=== PATIENT | female | born 1980 | race Caucasian/White ===

== ENCOUNTER → 2018-01-26 11:58 | Outpatient (CLI) | payer OTHER, SELFPAY ==
[2018-02-01 15:21] LABS: HPV Reflexed? NOT INDICATED
== END ==
PROVIDERS: Visit Provider Obstetrics & Gynecology
DX: Z12.4 Encounter for screening for malignant neoplasm of cervix (principal)
CPT/HCPCS: 88175; G0145

== ENCOUNTER → 2020-04-24 | Outpatient (CLI) | payer OTHER, SELFPAY ==
[2020-04-29 14:23] LABS: HPV Reflexed? NOT INDICATED
== END | disposition home or self-care (01) ==
PROVIDERS: Obstetrics & Gynecology
DX: Z12.4 Encounter for screening for malignant neoplasm of cervix (principal)
CPT/HCPCS: 88175; G0145

== ENCOUNTER → 2020-06-19 13:14 | Outpatient (CLI) | payer OTHER, SELFPAY ==
--- NOTE | 2020-06-19 13:17 | BI_ITS ---
MAMMOGRAPHY - BILATERAL SCREENING REASON FOR EXAM: Female, 40 years old. Routine annual screening examination. PERTINENT HISTORY: Grandmother with breast cancer. TECHNIQUE: Digital bilateral breast donald (3D mammographic acquisition) in the CC and MLO projections. 2-D mediolateral oblique (MLO) and craniocaudad (CC) views of both breasts were obtained. CAD: Full Field Digital Mammography with Computer Added Detection was performed. COMPARISON: None. Baseline examination. FINDINGS: Breast Composition: The breasts are extremely dense, which lowers the sensitivity of mammography. There is a 2.2 cm x 2 cm nodular density in the upper lateral portion of the right breast. Correlation with ultrasound is recommended. Benign appearing bilateral axillary lymph nodes. No other significant abnormalities are identified. BI/SCREEN MAMM (CAD) W/DONALD BILAT IMPRESSION: 2.2 cm x 2 cm nodular density in the upper lateral aspect of the right breast. Correlation with ultrasound is recommended. ASSESSMENT CATEGORY: BIRADS Category 0: Incomplete. Need additional imaging evaluation. A letter regarding these results will be sent to the patient by the facility within 30 days. Approximately 10% of breast cancers are not detected by mammography. A normal mammogram should not delay biopsy of a clinically suspicious abnormality. [id number] Electronically Signed: Ralph Kirby, at 14:40 EST , Service support ,
== END ==
PROVIDERS: PCP Family Medicine; Referring Provider Obstetrics & Gynecology; Visit Provider Obstetrics & Gynecology
DX: Z12.31 Encounter for screening mammogram for malignant neoplasm of breast (principal)
CPT/HCPCS: 77063; 77067

== ENCOUNTER → 2020-06-24 11:00 | Outpatient (CLI) | payer OTHER, SELFPAY ==
--- NOTE | 2020-06-24 11:05 | US_ITS ---
STUDY: ULTRASOUND BREAST - RIGHT REASON FOR EXAM: Female, 40 years old. A normal screening mammogram. TECHNIQUE: Axial and longitudinal images of the RIGHT breast were performed with a high resolution ultrasound transducer. # OF IMAGES: 70 COMPARISON: Comparison is made with prior mammogram dated 06/19/2020. FINDINGS: RIGHT Breast: Dense fibroglandular tissue is seen in the upper outer quadrant of the right breast. No solid or cystic mass lesion is seen. US/Breast Limited Unilateral IMPRESSION: Dense fibroglandular tissue is seen in the upper outer quadrant of the right breast. No sonographic abnormality is seen. ASSESSMENT CATEGORY: BIRADS Category 2: Benign. A letter regarding these results will be sent to the patient by the facility within 30 days. Electronically Signed: Ralph Kirby, at 15:45 EST , Service support ,
== END ==
PROVIDERS: PCP Family Medicine; Referring Provider Obstetrics & Gynecology; Visit Provider Obstetrics & Gynecology
DX: R92.2 Inconclusive mammogram (principal)
CPT/HCPCS: 76642

== ENCOUNTER → 2021-07-07 10:12 | Outpatient (CLI) | payer OTHER, SELFPAY ==
--- NOTE | 2021-07-07 10:16 | BI_ITS ---
MAMMOGRAPHY - BILATERAL SCREENING 3-D TOMOSYNTHESIS REASON FOR EXAM: Female, 41 years old. SCREENING PERTINENT HISTORY: No significant family history. TECHNIQUE: 2-D mammograms and 3-D Tomosynthesis of the breast (s) were performed. CAD was performed. COMPARISON: None. FINDINGS: The breast composition is heterogeneously dense that can obscure small breast masses. Scattered benign calcifications are seen. No dense spiculated masses or suspicious microcalcifications are identified. No architectural distortion is identified. There is no skin thickening or retraction. There has been no significant change since the prior study. BI/SCRN MAMM (CAD)W/DONALD BILAT IMPRESSION: No mammographic signs of malignancy. Routine yearly mammograms recommended. ASSESSMENT CATEGORY: BIRADS Category 1: Negative. A letter regarding these results will be sent to the patient by the facility within 30 days. FOLLOW UP RECOMMENDATION: Yearly follow up mammogram recommended. (A) Approximately 10% of breast cancers are not detected by mammography. A normal mammogram should not delay biopsy of a clinically suspicious abnormality. Electronically Signed: Bunny Lechuga MD at 11:44 EST Tel , Service support ,
== END ==
PROVIDERS: PCP Family Medicine; Referring Provider Obstetrics & Gynecology; Visit Provider Obstetrics & Gynecology
DX: Z12.31 Encounter for screening mammogram for malignant neoplasm of breast (principal)
CPT/HCPCS: 77063; 77067

== ENCOUNTER → 2022-09-01 | Outpatient (CLI) | payer OTHER, SELFPAY ==
[2022-09-09 18:48] LABS: HPV APTIMA, High Risk Negative (Negative)
== END | disposition home or self-care (01) ==
PROVIDERS: PCP Family Medicine; Visit Provider Obstetrics & Gynecology
DX: Z12.4 Encounter for screening for malignant neoplasm of cervix (principal)
CPT/HCPCS: 87624; 88175; G0145

== ENCOUNTER → 2022-09-11 | Outpatient (CLI) | payer OTHER, SELFPAY ==
--- NOTE | 2022-09-11 08:41 | BI_ITS ---
MAMMOGRAPHY - BILATERAL SCREENING REASON FOR EXAM: Female, 42 years old. Routine annual screening examination. PERTINENT HISTORY: Grandmother with breast cancer. Prior right ultrasound-guided breast biopsy. TECHNIQUE: Digital bilateral breast donald (3D mammographic acquisition) in the CC and MLO projections. 2-D mediolateral oblique (MLO) and craniocaudad (CC) views of both breasts were obtained. CAD: Full Field Digital Mammography with Computer Added Detection was performed. COMPARISON: Comparison is made with prior study dated April 07, 2021 and June 19, 2020. FINDINGS: Breast Composition: The breasts are heterogeneously dense, which may obscure small masses. There are no dominant masses or suspicious calcifications. Stable small benign-appearing bilateral axillary lymph nodes. No other significant abnormalities are identified. There has been no significant change since the prior study. BI/SCRN MAMM (CAD)W/DONALD BILAT IMPRESSION: Stable bilateral screening mammogram. Yearly follow-up mammogram recommended. (A) ASSESSMENT CATEGORY: BIRADS Category 2: Benign. A letter regarding these results will be sent to the patient by the facility within 30 days. Approximately 10% of breast cancers are not detected by mammography. A normal mammogram should not delay biopsy of a clinically suspicious abnormality. [id number] Electronically Signed: Ralph Kirby MD at 9:29 EST ,
== END | disposition home or self-care (01) ==
PROVIDERS: PCP Family Medicine; Referring Provider Obstetrics & Gynecology; Visit Provider Obstetrics & Gynecology
DX: Z12.31 Encounter for screening mammogram for malignant neoplasm of breast (principal)
CPT/HCPCS: 77063; 77067

== ENCOUNTER → 2023-09-14 | Outpatient (CLI) | payer OTHER, SELFPAY ==
--- NOTE | 2023-09-14 09:10 | BI_ITS ---
MAMMOGRAPHY - BILATERAL SCREENING 3-D TOMOSYNTHESIS REASON FOR EXAM: Female, 43 years old. Screening for breast cancer PERTINENT HISTORY: No significant family history. TECHNIQUE: 2-D mammograms and 3-D Tomosynthesis of the breast (s) were performed. CAD was performed. COMPARISON: 09/11/2022 FINDINGS: The breast composition is heterogeneously dense that can obscure small breast masses. Scattered benign calcifications are seen. No dense spiculated masses or suspicious microcalcifications are identified. No architectural distortion is identified. There is no skin thickening or retraction. There has been no significant change since the prior study. BI/SCRN MAMM (CAD)W/DONALD BILAT IMPRESSION: No mammographic signs of malignancy. Routine yearly mammograms recommended. ASSESSMENT CATEGORY: BIRADS Category 1: Negative. A letter regarding these results will be sent to the patient by the facility within 30 days. FOLLOW UP RECOMMENDATION: Yearly follow up mammogram recommended. (A) Approximately 10% of breast cancers are not detected by mammography. A normal mammogram should not delay biopsy of a clinically suspicious abnormality. Electronically Signed: Bunny Lechuga MD at 17:40 EST ,
--- OUTSIDE RECORDS SUMMARY | 2023-09-14 09:55 | XMS RPT_ITS | CCD ---
Author Name Unknown Address [id number] [place] [address] Organization [facility] Care Team Providers Care Sales Agent Pest Control Service Name Role Phone Pastor Sahni MD Primary Care Provider Unavailable Primary Care Provider PASTOR Patel Primary Care Unavailable PASTOR SAHNI Primary Care Unavailable PASTOR SAHNI Primary Care Unavailable PASTOR SAHNI Primary Care Unavailable Medications Current Medications Medication Drug Class(es) Dates Sig (Normalized) Sig (Original) benzonatate 100 mg oral capsule (3 sources) Non-narcotic Antitussive Start: 05-09-2017 End: 07-04-2022 take 2 capsules by mouth three times daily as needed benzonatate (TESSALON PERLE) 100 mg capsule Indications: Viral URI with cough Take 2 capsules by mouth three times daily as needed for up to 10 days. 60 capsule 0 06/24/2022 07/04/2022 Active Completed/Discontinued Medications Medication Drug Class(es) Dates Sig (Normalized) Sig (Original) 12 hr buPROPion hydrochloride 100 mg extended release oral tablet (4 sources) Aminoketone Start: 05-17-2020 take 1 tablet by mouth once daily buPROPion SR (WELLBUTRIN SR) 100 mg 12 hr tablet Take 100 mg by mouth once daily. 0 05/17/2020 Active Problems Active Problems Problem Classification Problem Date Documented Da te Episodic/Chronic Other circulatory disease (1 source) Facial sinus finding; Translations: [Other specified symptoms and signs involving the circulatory and respiratory systems] 02-09-2023 Episodic Other gastrointestinal disorders (4 sources) Irritable bowel syndrome; Translations: [Irritable bowel syndrome without diarrhea] 07-20-2005 Chronic Other gastrointestinal disorders (4 sources) Constipation; Translations: [Constipation, unspecified] 07-20-2005 Episodic Other upper respiratory disease (1 source) Chronic rhinitis; Translations: [Unspecified sinusitis (chronic)] Chronic Other upper respiratory infections (2 sources) Viral upper respiratory tract infection; Translations: [Acute upper respiratory infection, unspecified] Episodic Viral infection (1 source) Viral disease; Translations: [Viral infection, unspecified] 02-16-2023 Episodic Past or Other Problems Problem Classification Problem Date Documented Date Episodic/Chronic Fetopelvic disproportion; obstruction (4 sources) Large fetus causing disproportion - delivered; Translations: [Maternal care for disproportion due to unusually large fetus, not applicable or unspecified] Onset: 06-30-2010 06-30-2010 Episodic Results Test Name Value Interpretation Reference Range Facil ity Vital Signs Date Time Vital Sign Value Performing Clinician Facility 02-16-2023 14:26-0400 Body temperature 100.29 [degF] Elly Wick BAKER SECOND.MILK DRYING MACHINE OPERATOR Work Phone: [facility] 02-16-2023 14:26-0400 Body weight 88.72 kg Elly Wick BAKER SECOND.MILK DRYING MACHINE OPERATOR Work Phone: [facility] 02-16-2023 14:26-0400 Diastolic blood pressure 82 mm[Hg] Elly Wick BAKER SECOND.MILK DRYING MACHINE OPERATOR Work Phone: [facility] 02-16-2023 14:26-0400 Heart rate 84 /min Elly Wick BAKER SECOND.MILK DRYING MACHINE OPERATOR Work Phone: [facility] 02-16-2023 14:26-0400 Respiratory rate 18 /min Elly Wick BAKER SECOND.MILK DRYING MACHINE OPERATOR Work Phone: [facility] 02-16-2023 14:26-0400 SaO2% (BldA) [Mass fraction] 96 % Elly Wick BAKER SECOND.MILK DRYING MACHINE OPERATOR Work Phone: [facility] 02-16-2023 14:26-0400 Systolic blood pressure 112 mm[Hg] Elly Wick BAKER SECOND.MILK DRYING MACHINE OPERATOR Work Phone: [facility] 02-09-2023 10:38-0400 Body temperature 97.11 [degF] Molly Sanders BAKER SECOND.MILK DRYING MACHINE OPERATOR Work Phone: [facility] 02-09-2023 10:38-0400 Body weight 87.36 kg Molly Sanders BAKER SECOND.MILK DRYING MACHINE OPERATOR Work Phone: [facility] 02-09-2023 10:38-0400 Diastolic blood pressure 68 mm[Hg] Molly Sanders BAKER SECOND.MILK DRYING MACHINE OPERATOR Work Phone: [facility] 02-09-2023 10:38-0400 Heart rate 61 /min Molly Sanders BAKER SECOND.MILK DRYING MACHINE OPERATOR Work Phone: [facility] 02-09-2023 10:38-0400 Respiratory rate 18 /min Molly Sanders BAKER SECOND.MILK DRYING MACHINE OPERATOR Work Phone: [facility] 02-09-2023 10:38-0400 SaO2% (BldA) [Mass fraction] 97 % Molly Sanders BAKER SECOND.MILK DRYING MACHINE OPERATOR Work Phone: [facility] 02-09-2023 10:38-0400 Systolic blood pressure 108 mm[Hg] Molly Sanders BAKER SECOND.MILK DRYING MACHINE OPERATOR Work Phone: [facility] 06-24-2022 18:31-0500 Body temperature 99.5 [degF] Jennifer Praisler-Wood BAKER SECOND.MILK DRYING MACHINE OPERATOR Work Phone: [facility] 06-24-2022 18:31-0500 Body weight 88.36 kg Jennifer Praisler-Wood BAKER SECOND.MILK DRYING MACHINE OPERATOR Work Phone: [facility] 06-24-2022 18:31-0500 Diastolic blood pressure 84 mm[Hg] Jennifer Praisler-Wood BAKER SECOND.MILK DRYING MACHINE OPERATOR Work Phone: [facility] 06-24-2022 18:31-0500 Heart rate 92 /min Jennifer Praisler-Wood BAKER SECOND.MILK DRYING MACHINE OPERATOR Work Phone: [facility] 06-24-2022 18:31-0500 Respiratory rate 20 /min Jennifer Praisler-Wood BAKER SECOND.MILK DRYING MACHINE OPERATOR Work Phone: [facility] 06-24-2022 18:31-0500 SaO2% (BldA) [Mass fraction] 98 % Jennifer Flynn APRN.MILK DRYING MACHINE OPERATOR Work Phone: [facility] 06-24-2022 18:31-0500 Systolic blood pressure 122 mm[Hg] Jennifre Flynn APRN.MILK DRYING MACHINE OPERATOR Work Phone: [facility] 06-05-2022 12:10-0500 Body temperature 98.6 [degF] Molly Sanders APRN.MILK DRYING MACHINE OPERATOR Work Phone: [facility] 06-05-2022 12:10-0500 Body weight 88.18 kg Molly Sanders APRN.MILK DRYING MACHINE OPERATOR Work Phone: [facility] 06-05-2022 12:10-0500 Diastolic blood pressure 72 mm[Hg] Molly Sanders APRN.MILK DRYING MACHINE OPERATOR Work Phone: [facility] 06-05-2022 12:10-0500 Heart rate 72 /min Molly Sanders APRN.MILK DRYING MACHINE OPERATOR Work Phone: [facility] 06-05-2022 12:10-0500 Respiratory rate 18 /min Molly Sanders APRN.MILK DRYING MACHINE OPERATOR Work Phone: [facility] 06-05-2022 12:10-0500 SaO2% (BldA) [Mass fraction] 99 % Molly Sanders APRN.MILK DRYING MACHINE OPERATOR Work Phone: [facility] 06-05-2022 12:10-0500 Systolic blood pressure 110 mm[Hg] Molly Sanders APRN.MILK DRYING MACHINE OPERATOR Work Phone: [facility] Encounters Encounter Date Encounter Type Care Provider Facility Start: 02-16-2023 End: 02-16-2023 ambulatory [facility] Facility:[facility] Start: 02-16-2023 End: 02-16-2023 Patient encounter procedure Elly Wick APRN.MILK DRYING MACHINE OPERATOR Work Phone: [facility] Procedures Date Procedure Procedure Detail Performing Clinician Start: 02-16-2023 COVID WITH FLUA+B, ROUTINE Elly Wick APRN.MILK DRYING MACHINE OPERATOR Work Phone: Start: 08-01-2023 STREP A MOLECULAR (POC) Molly Sanders APRN.MILK DRYING MACHINE OPERATOR Work Phone: Plan of Treatment Date Care Activity Detail Author Start: 03-12-2023 Influenza vaccination INFLUENZA (#1) [facility] Start: 07-12-2022 DEPRESSION ASSESSMENT DEPRESSION ASS ESSMENT [facility] Start: 06-24-2022 End: 07-08-2022 Influenza virus A and B RNA and SARS-CoV-2 (COVID-19) N gene panel - Respiratory specimen by JAYDON with probe detection [facility] Work Phone: Payers Date Payer Category Payer Unknown [id number] 2015 Unknown [id number] Social History Date Type Detail Facility Start: 06-05-2022 Tobacco smoking stat [facility] Never smoked tobacco [facility] Start: 06-05-2022 Tobacco use and exposure Smoke less tobacco non-user [facility] Start: 06-05-2022 End: 02-16-2023 Alcohol intake Current drinker of alcohol (finding) [facility] Start: 1980 Sex Assigned At Not on file [facility] Start: 05-26-2022 End: 06-05-2022 Exposure to SARS-CoV-2 (event) Not sure [facility] Start: 02-09-2023 End: 02-12-2023 History of Social function [facility] Start: 02-09-2023 End: 02-12-2023 Tobacco use panel [facility] Adult Depression Screening Assessment 5 [facility] Start: 1980 Sex Assigned At Female [facility] Start: 02-16-2023 Gender identity Identifies as female gender (finding) [facility] Start: 02-16-2023 Sexual orientation Heterosexual (fin ding) [facility] Clinical Notes 06-05-2022 to 02-16-2023 Elly Wick APRN.MILK DRYING MACHINE OPERATOR - 02/16/2023 2:32 PM Molly Garcia APRN.MILK DRYING MACHINE OPERATOR - 02/09/2023 10:42 AM Jeanne Flynn APRN.MILK DRYING MACHINE OPERATOR - 06/24/2022 7:01 PM ESTPatient Instructions Note Date & Type Note Facility 02-16-2023 Note HNO ID: [id number] Author: Elly Wick APRN.MILK DRYING MACHINE OPERATOR Service: ? Author Type: Nurse Practitioner Type: Progress Notes Filed: 02/16/2023 3:16 PM Note Text: This note was created using [employer]. Subjective Lori Betts is a 42 year old female. 42 year old female with no PMH presents for illness. Acute onset 01/29/23 Treated for AOM and placed on Amoxicillin. States she had improvement of symptoms (states when she flew back from [place] she felt sinus pressure) Seen here on 02/09/23 for similar She endorses that she started to feel better the day after being seen. In fact she missed her appt that was scheduled 02/12/23 to attend a wedding. She woke up this morning with body aches Headache Light fever +cough Reduce PO intake She is accompanied by her boyfriend who is here for same. 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 No nuclear powerplant supervisor was used. Cough This is a new problem. The current episode started 12 to 24 hours ago. The problem occurs constantly. The problem has not changed since onset.The cough is Non-productive. The maximum temperature recorded prior to her arrival was 100 to 100.9 F. Associated symptoms include chills, headaches and myalgias. Pertinent negatives include no chest pain, no sweats, no weight loss, no ear congestion, no ear pain, no rhinorrhea, no sore throat, no shortness of breath, no wheezing and no eye redness. She has tried nothing for the symptoms. The treatment provided no relief. She is not a smoker. Her past medical history does not include bronchitis, pneumonia, bronchiectasis, COPD, emphysema or asthma. PAST MEDICAL HISTORY Diagnosis Date Irritable bowel syndrome Unspecified constipation No past surgical history on file. ALLERGIES Patient has no known allergies. MEDICATIONS norgestimate 0.25 mg-ethinyl estradiol 35 mcg 0.25-35 mg-mcg per tablet fluticasone (FLONASE) 50 mcg/actuation nasal spray Use 2 Sprays in each nostril once daily. Rinse mouth after use. (Patient not taking: Reported on 01/29/2023) buPROPion SR (WELLBUTRIN SR) 100 mg 12 hr tablet Take 100 mg by mouth once daily. (Patient not taking: Reported on 03/14/2021 ) lidocaine viscous (LIDOCAINE VISCOUS) 2 % solution Gargle and spit 10-15mLs every 3-4 hours as need for throat discomfort. (Patient not taking: Reported on 03/14/2021 ) norgestimate-ethinyl estradiol(TRI-SPRINTEC (28) 0.18/0.215/0.25 MG-35 MCG(28) TAB) Take one(1) tablet daily. (Patient not taking: ) No family history on file. Social History Tobacco Use Smoking status: Never Smokeless tobacco: Never Vaping Use Vaping Use: Never used Substance Use Topics Alcohol use: Yes Comment: Occasionally Drug use: No Review of Systems Constitutional: Positive for chills. Negative for fatigue, fever and weight loss. HENT: Negative for ear pain, rhinorrhea and sore throat. Eyes: Negative for discharge, redness and itching. Respiratory: Positive for cough. Negative for shortness of breath and wheezing. Cardiovascular: Negative for chest pain, palpitations and leg swelling. Gastrointestinal: Negative for abdominal pain, diarrhea, nausea and vomiting. Musculoskeletal: Positive for myalgias. Negative for arthralgias, back pain and gait problem. Skin: Negative for color change, pallor, rash and wound. Neurological: Positive for headaches. Hematological: Negative for adenopathy. Does not bruise/bleed easily. Psychiatric/Behavioral: Negative for agitation and behavioral problems. Objective BP 112/82 Pulse 84 Temp 37.9 ?C (100.3 ?F) (Tympanic) Resp 18 Wt 88.7 kg (195 lb 9.6 oz) LMP 06/22/2016 (Approximate) SpO2 96% Physical Exam Vitals and nursing note reviewed. Constitutional: General: She is not in acute distress. Appearance: Normal appearance. She is normal weight. She is not ill-appearing, toxic-appearing or diaphoretic. HENT: Head: Normocephalic and atraumatic. Right Ear: Ear canal and external ear normal. Left Ear: Ear canal and external ear normal. Nose: Nose normal. No congestion or rhinorrhea. Mouth/Throat: Mouth: Mucous membranes are moist. Pharynx: No oropharyngeal exudate or posterior oropharyngeal erythema. Eyes: General: Right eye: No discharge. Left eye: No discharge. Extraocular Movements: Extraocular movements intact. Conjunctiva/sclera: Conjunctivae normal. Pupils: Pupils are equal, round, and reactive to light. Cardiovascular: Rate and Rhythm: Normal rate and regular rhythm. Pulses: Normal pulses. Heart sounds: Normal heart sounds. No murmur heard. No friction rub. Pulmonary: Effort: Pulmonary effort is normal. No respiratory distress. Breath sounds: Normal breath sounds. No stridor. No wheezing, rhonchi or rales. Chest: Chest wall: No tenderness. Abdominal: General: Abdomen is flat. There is no distension. Palpations: (more content not included)... [facility] 02-16-2023 History of Present illness Narrative This note was created using [email or web address]. Subjective Lori Betts is a 42 year old female. 42 year old female with no PMH presents for illness. Acute onset 01/29/23 Treated for AOM and placed on Amoxicillin. States she had improvement of symptoms (states when she flew back from [place] she felt sinus pressure) Seen here on 02/09/23 for similar She endorses that she started to feel better the day after being seen. In fact she missed her appt that was scheduled 02/12/23 to attend a wedding. She woke up this morning with body aches Headache Light fever +cough Reduce PO intake She is accompanied by her boyfriend who is here for same. 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 No nuclear powerplant supervisor was used. Cough This is a new problem. The current episode started 12 to 24 hours ago. The problem occurs constantly. The problem has not changed since onset.The cough is Non-productive. The maximum temperature recorded prior to her arrival was 100 to 100.9 F. Associated symptoms include chills, headaches and myalgias. Pertinent negatives include no chest pain, no sweats, no weight loss, no ear congestion, no ear pain, no rhinorrhea, no sore throat, no shortness of breath, no wheezing and no eye redness. She has tried nothing for the symptoms. The treatment provided no relief. She is not a smoker. Her past medical history does not include bronchitis, pneumonia, bronchiectasis, COPD, emphysema or asthma. PAST MEDICAL HISTORY Diagnosis Date Irritable bowel syndrome Unspecified constipation No past surgical history on file. ALLERGIES Patient has no known allergies. MEDICATIONS norgestimate 0.25 mg-ethinyl estradiol 35 mcg 0.25-35 mg-mcg per tablet fluticasone (FLONASE) 50 mcg/actuation nasal spray Use 2 Sprays in each nostril once daily. Rinse mouth after use. (Patient not taking: Reported on 01/29/2023) buPROPion SR (WELLBUTRIN SR) 100 mg 12 hr tablet Take 100 mg by mouth once daily. (Patient not taking: Reported on 03/14/2021 ) lidocaine viscous (LIDOCAINE VISCOUS) 2 % solution Gargle and spit 10-15mLs every 3-4 hours as need for throat discomfort. (Patient not taking: Reported on 03/14/2021 ) norgestimate-ethinyl estradiol(TRI-SPRINTEC (28) 0.18/0.215/0.25 MG-35 MCG(28) TAB) Take one(1) tablet daily. (Patient not taking: ) No family history on file. Social History Tobacco Use Smoking status: Never Smokeless tobacco: Never Vaping Use Vaping Use: Never used Substance Use Topics Alcohol use: Yes Comment: Occasionally Drug use: No Review of Systems Constitutional: Positive for chills. Negative for fatigue, fever and weight loss. HENT: Negative for ear pain, rhinorrhea and sore throat. Eyes: Negative for discharge, redness and itching. Respiratory: Positive for cough. Negative for shortness of breath and wheezing. Cardiovascular: Negative for chest pain, palpitations and leg swelling. Gastrointestinal: Negative for abdominal pain, diarrhea, nausea and vomiting. Musculoskeletal: Positive for myalgias. Negative for arthralgias, back pain and gait problem. Skin: Negative for color change, pallor, rash and wound. Neurological: Positive for headaches. Hematological: Negative for adenopathy. Does not bruise/bleed easily. Psychiatric/Behavioral: Negative for agitation and behavioral problems. Objective BP 112/82 Pulse 84 Temp 37.9 C (100.3 F) (Tympanic) Resp 18 Wt 88.7 kg (195 lb 9.6 oz) LMP 06/22/2016 (Approximate) SpO2 96% Physical Exam Vitals and nursing note reviewed. Constitutional: General: She is not in acute distress. Appearance: Normal appearance. She is normal weight. She is not ill-appearing, toxic-appearing or diaphoretic. HENT: Head: Normocephalic and atraumatic. Right Ear: Ear canal and external ear normal. Left Ear: Ear canal and external ear normal. Nose: Nose normal. No congestion or rhinorrhea. Mouth/Throat: Mouth: Mucous membranes are moist. Pharynx: No oropharyngeal exudate or posterior oropharyngeal erythema. Eyes: General: Right eye: No discharge. Left eye: No discharge. Extraocular Movements: Extraocular movements intact. Conjunctiva/sclera: Conjunctivae normal. Pupils: Pupils are equal, round, and reactive to light. Cardiovascular: Rate and Rhythm: Normal rate and regular rhythm. Pulses: Normal pulses. Heart sounds: Normal heart sounds. No murmur heard. No friction rub. Pulmonary: Effort: Pulmonary effort is normal. No respiratory distress. Breath sounds: Normal breath sounds. No stridor. No wheezing, rhonchi or rales. Chest: Chest wall: No tenderness. Abdominal: General: Abdomen is flat. There is no distension. Palpations: Abdomen is soft. There is no mass. Tenderness: There is no abdominal tenderness. There is no right CVA tenderness, left CVA tenderness, guarding or rebound. Hernia: No hernia is present. Musculoskeletal: General: No swelling, tenderness, deformity or signs of injury. Normal range of motion. Cervical back: Normal range of motion and neck supple. No rigidity. Right lower leg: No edema. Left lower leg: No edema. Lymphadenopathy: Cervical: No cervical adenopathy. Skin: General: Skin is warm and dry. Capillary Refill: Capillary refill takes less than 2 seconds. Coloration: Skin is not jaundiced or pale. Findings: No bruising, erythema, lesion or rash. Neurological: General: No focal deficit present. Mental Status: She is alert and oriented to person, place, and time. Cranial Nerves: No cranial nerve deficit. Sensory: No sensory deficit. Motor: No weakness. Coordination: Coordination normal. Gait: Gait normal. Psychiatric: Mood and Affect: Mood normal. Behavior: Behavior normal. Thought Content: Thought content normal. Judgment: Judgment normal. Assessment and Plan ASSESSMENT/PLAN: 1. Viral illness - ICD9: 079.99, ICD10: B34.9 X 1 day Boyfriend here with similar They both attended wedding this past Wednesday Patient requesting flu testing - Discussed viral etiology and rationale for treatment. - Symptomatic treatment with prn analgesia - Supportive care with fluids and rest - The patient may also use OTC cough and cold meds as needed, warm salt water gargles, throat lozenges and/or OTC throat spray as needed, and nasal saline gtts and suction prn. - Follow up in 3-5 days if symptoms persist or sooner if worsening of symptoms - COVID WITH FLUA+B, ROUTINE Elly Wick APRN.MILK DRYING MACHINE OPERATOR documented in this encounter [facility] 02-09-2023 Note HNO ID: [id number] Author: Molly Sanders APRN.CNP Service: ? Author Type: Nurse Practitioner Type: Progress Notes Filed: 02/09/2023 11:23 AM Note Text: CC: Patient presents with: Ear Pain: Left ear and throat pain x 1.5 weeks HPI: Lori Betts is a 42 year old female who presents to the office with complaint of sore throat and ear symptoms for 1.5 weeks. Symptoms are staying the same. Associated symptoms includes sore throat. Denies fever, nausea, vomiting , and diarrhea. Treatments tried include nothing so far. with no relief of symptoms. Sick contacts: unknown. History of asthma, frequent episodes of bronchitis, chronic bronchitis, bronchiectasis or COPD: No Smoker: No Seasonal/environmental allergies: No The ROS is otherwise negative. The patient's pmh, medications, allergies, and past visits are reviewed. PHYSICAL EXAM: BP 108/68 Pulse 61 Temp 36.2 ?C (97.1 ?F) (Tympanic) Resp 18 Wt 87.4 kg (192 lb 9.6 oz) LMP 06/22/2016 (Approximate) SpO2 97% General appearance: alert, cooperative, pleasant, in no acute distress Head: Normocephalic Eyes: EOM's intact, conjunctiva pink and moist, no icterus, sclera white, non-injected Ears: Right ear: External ear/canal- Normal, TM - clear with good landmarks. Left ear: External ear/canal- Normal, TM - clear with good landmarks Oropharynx:mild erythema, without exudates present Heart: Negative. RRR without obvious murmur, gallop, or rubs. No ectopy. Lungs: clear to auscultation, without rales or wheeze, good air exchange PAST MEDICAL HISTORY Diagnosis Date Irritable bowel syndrome Unspecified constipation No past surgical history on file. ALLERGIES Patient has no known allergies. MEDICATIONS norgestimate 0.25 mg-ethinyl estradiol 35 mcg 0.25-35 mg-mcg per tablet fluticasone (FLONASE) 50 mcg/actuation nasal spray Use 2 Sprays in each nostril once daily. Rinse mouth after use. (Patient not taking: Reported on 01/29/2023) buPROPion SR (WELLBUTRIN SR) 100 mg 12 hr tablet Take 100 mg by mouth once daily. (Patient not taking: Reported on 03/14/2021 ) lidocaine viscous (LIDOCAINE VISCOUS) 2 % solution Gargle and spit 10-15mLs every 3-4 hours as need for throat discomfort. (Patient not taking: Reported on 03/14/2021 ) norgestimate-ethinyl estradiol(TRI-SPRINTEC (28) 0.18/0.215/0.25 MG-35 MCG(28) TAB) Take one(1) tablet daily. (Patient not taking: ) No family history on file. Social History Tobacco Use Smoking status: Never Smokeless tobacco: Never Vaping Use Vaping Use: Never used Substance Use Topics Alcohol use: Yes Comment: Occasionally Drug use: No ASSESSMENT/PLAN: 1. Sore throat - ICD9: 462, ICD10: J02.9 (primary diagnosis) - STREP A MOLECULAR (POC) -neg 2. Sinus complaint - ICD9: 786.9, ICD10: R09.89 - CONSULT TO ENT - appt made for wednesday roni will also call around to see if she can get an appt sooner for further testing. Prescription instructions reviewed with patient as applicable. Potential red flag symptoms discussed with the patient. Reviewed appropriate action plan to take if red flag symptoms occur. Patient agreeable to treatment plan. Molly Sanders APRN.[facility] 02-09-2023 History of Present illness Narrative CC: Patient presents with: Ear Pain: Left ear and throat pain x 1.5 weeks HPI: Lori Betts is a 42 year old female who presents to the office with complaint of sore throat and ear symptoms for 1.5 weeks. Symptoms are staying the same. Associated symptoms includes sore throat. Denies fever, nausea, vomiting , and diarrhea. Treatments tried include nothing so far. with no relief of symptoms. Sick contacts: unknown. History of asthma, frequent episodes of bronchitis, chronic bronchitis, bronchiectasis or COPD: No Smoker: No Seasonal/environmental allergies: No The ROS is otherwise negative. The patient's pmh, medications, allergies, and past visits are reviewed. PHYSICAL EXAM: BP 108/68 Pulse 61 Temp 36.2 C (97.1 F) (Tympanic) Resp 18 Wt 87.4 kg (192 lb 9.6 oz) LMP 06/22/2016 (Approximate) SpO2 97% General appearance: alert, cooperative, pleasant, in no acute distress Head: Normocephalic Eyes: EOM's intact, conjunctiva pink and moist, no icterus, sclera white, non-injected Ears: Right ear: External ear/canal- Normal, TM - clear with good landmarks. Left ear: External ear/canal- Normal, TM - clear with good landmarks Oropharynx:mild erythema, without exudates present Heart: Negative. RRR without obvious murmur, gallop, or rubs. No ectopy. Lungs: clear to auscultation, without rales or wheeze, good air exchange PAST MEDICAL HISTORY Diagnosis Date Irritable bowel syndrome Unspecified constipation No past surgical history on file. ALLERGIES Patient has no known allergies. MEDICATIONS norgestimate 0.25 mg-ethinyl estradiol 35 mcg 0.25-35 mg-mcg per tablet fluticasone (FLONASE) 50 mcg/actuation nasal spray Use 2 Sprays in each nostril once daily. Rinse mouth after use. (Patient not taking: Reported on 01/29/2023) buPROPion SR (WELLBUTRIN SR) 100 mg 12 hr tablet Take 100 mg by mouth once daily. (Patient not taking: Reported on 03/14/2021 ) lidocaine viscous (LIDOCAINE VISCOUS) 2 % solution Gargle and spit 10-15mLs every 3-4 hours as need for throat discomfort. (Patient not taking: Reported on 03/14/2021 ) norgestimate-ethinyl estradiol(TRI-SPRINTEC (28) 0.18/0.215/0.25 MG-35 MCG(28) TAB) Take one(1) tablet daily. (Patient not taking: ) No family history on file. Social History Tobacco Use Smoking status: Never Smokeless tobacco: Never Vaping Use Vaping Use: Never used Substance Use Topics Alcohol use: Yes Comment: Occasionally Drug use: No ASSESSMENT/PLAN: 1. Sore throat - ICD9: 462, ICD10: J02.9 (primary diagnosis) - STREP A MOLECULAR (POC) -neg 2. Sinus complaint - ICD9: 786.9, ICD10: R09.89 - CONSULT TO ENT - appt made for wednesday roni will also call around to see if she can get an appt sooner for further testing. Prescription instructions reviewed with patient as applicable. Potential red flag symptoms discussed with the patient. Reviewed appropriate action plan to take if red flag symptoms occur. Patient agreeable to treatment plan. Molly Sanders APRN.MILK DRYING MACHINE OPERATOR documented in this encounter [facility] 01-29-2023 Note HNO ID: [id number] Author: Jennifer Flynn APRN.MARIO Service: ? Author Type: Nurse Practitioner Type: Progress Notes Filed: 01/29/2023 9:53 AM Note Text: Subjective Sore Throat Associated symptoms include ear pain and headaches. Pertinent negatives include no congestion, coughing, diarrhea or vomiting. Lori Betts is a 42 year old female who presents with a sore throat and left ear pain x 3 days. States her pain is getting worse. Rates throat and ear pain 7/10. She has not had a fever. No known strep exposure. She has been taking sudafed and ibuprofen at home for pain. She denies associated URI symptoms. Review of Systems Constitutional: Negative for chills and fever. HENT: Positive for ear pain and sore throat. Negative for congestion. Respiratory: Negative for cough. Cardiovascular: Negative. Gastrointestinal: Positive for nausea. Negative for diarrhea and vomiting. Neurological: Positive for headaches. BP 100/64 Pulse 80 Temp 36.2 ?C (97.1 ?F) Resp 21 Wt 88.5 kg (195 lb) LMP 06/22/2016 (Approximate) SpO2 98% PAST MEDICAL HISTORY Diagnosis Date Irritable bowel syndrome Unspecified constipation No past surgical history on file. ALLERGIES Patient has no known allergies. MEDICATIONS fluticasone (FLONASE) 50 mcg/actuation nasal spray Use 2 Sprays in each nostril once daily. Rinse mouth after use. (Patient not taking: Reported on 01/29/2023) buPROPion SR (WELLBUTRIN SR) 100 mg 12 hr tablet Take 100 mg by mouth once daily. (Patient not taking: Reported on 03/14/2021 ) lidocaine viscous (LIDOCAINE VISCOUS) 2 % solution Gargle and spit 10-15mLs every 3-4 hours as need for throat discomfort. (Patient not taking: Reported on 03/14/2021 ) norgestimate-ethinyl estradiol(TRI-SPRINTEC (28) 0.18/0.215/0.25 MG-35 MCG(28) TAB) Take one(1) tablet daily. (Patient not taking: ) No family history on file. Social History Tobacco Use Smoking status: Never Smokeless tobacco: Never Vaping Use Vaping Use: Never used Substance Use Topics Alcohol use: Yes Comment: Occasionally Drug use: No Objective Physical Exam Vitals and nursing note reviewed. Constitutional: General: She is not in acute distress. Appearance: Normal appearance. She is not ill-appearing. HENT: Right Ear: Tympanic membrane, ear canal and external ear normal. Left Ear: Ear canal and external ear normal. A middle ear effusion is present. Tympanic membrane is injected. Nose: Nose normal. Mouth/Throat: Mouth: Mucous membranes are moist. Pharynx: Uvula midline. Posterior oropharyngeal erythema present. No oropharyngeal exudate. Tonsils: No tonsillar exudate. Cardiovascular: Rate and Rhythm: Normal rate and regular rhythm. Heart sounds: Normal heart sounds. Pulmonary: Effort: Pulmonary effort is normal. No respiratory distress. Breath sounds: Normal breath sounds. No wheezing or rales. Musculoskeletal: Cervical back: Neck supple. Lymphadenopathy: Cervical: No cervical adenopathy. Skin: General: Skin is warm and dry. Findings: No erythema or rash. Neurological: Mental Status: She is alert. ASSESSMENT/PLAN: 1. Sore throat - ICD9: 462, ICD10: J02.9 (primary diagnosis) - suspect viral - Alere Strep Test negative, no culture pending - Discussed supportive care treatment with fluids, rest and analgesia. - STREP A MOLECULAR (POC) 2. Other acute nonsuppurative otitis media of left ear, recurrence not specified - ICD9: 381.00, ICD10: H65.192 - Will begin treatment with as per antibiotic as written, see orders - Supportive care with plenty of fluids, rest, and analgesia prn. - AMOXICILLIN 875 MG TABLET 3. Feared condition not demonstrated - ICD9: V65.5, ICD10: Z71.1 - patient states she gets vaginal yeast infection with antibiotic use - FLUCONAZOLE 150 MG TABLET - Follow-up with your PCP in 3-5 days if symptoms have not improved or sooner if symptoms worsen - Discussed red flags and need for immediate medical evaluation if any occur. - Discussed supportive care treatment with fluids, rest and analgesia. - Discussed expected course of illness Jennifer Flynn, BAKER SECOND.[facility] 06-24-2022 Influenza virus A and B RNA and SARS-CoV-2 (COVID-19) N gene panel JAYDON+probe (Resp) COVID 19 RESULT: SARS-CoV-2 (Agent of COVID-19) Not Detected by RT-PCR or equivalent method. jayshree [id number] (CHARLIE)_EUA This test was developed and its performance characteristics determined by [facility] [place]. This test has been authorized by FDA under an Emergency Use Authorization (EUA). This test has been validated in accordance with the FDA's Guidance Document Policy for Diagnostics Testing in Laboratories Certified to Perform High Complexity Testing under CLIA prior to Emergency use Authorization for Coronavirus Disease 2019 during the Public Health Emergency issued on September 09, 2019. Test performed by [facility], [facility] [place], [facility] [place], [place] [address]. INFLUENZA A PCR: Positive for Influenza A by RT-PCR INFLUENZA B PCR: Negative for Influenza B by RT-PCR [facility] Diagnosis Viral URI with cough- Primary Acute upper respiratory infections of unspecified site [facility] Diagnosis Sore throat- Primary Acute pharyngitis Sinus complaint Other symptoms involving respiratory system and chest [facility] Diagnosis Viral illness- Primary Unspecified viral infection, in conditions classified elsewhere and of unspecified site documented in this encounter [facility] Health Concerns Infection Onset Date Last Indicated Resolved Time COVID-19 Rule-Out 06/24/2022 06/24/2022 Infection Onset Date Last Indicated Resolved Time COVID-19 Rule-Out 02/16/2023 02/16/2023 02/16/2023 11:12 PM EDT Reason for Referral Specialty Diagnoses / Procedures Referred By Yao luna Referred To Contact Ent - Otolaryngology Diagnoses Sinus complaint Procedures CONSULT TO ENT OFFICE/OUTPATIENT [facility] 60-74 MINUTES Molly Sanders APRN.MILK DRYING MACHINE OPERATOR [address] [place] [address] Referral ID Status Reason Start Date Expiration Date Visits Requested Visits Authorized [id number] Authorized PCP Requested Referral 02/09/2023 02/09/2024 1 1 Summary Purpose Family History No Family History Records Found Advance Directives No Advanced Directives Records Found Additional Source Comments Source Comments (unrecognize d section and content) In the event this informatio n is protected by the Federal Confidentiality of Alcohol and Drug Abuse Patient Records regulations: The Federal rules restrict any use of the information to criminally investigate or prosecute any alcohol or drug abuse patient.[facility] the event this information is protected by the Federal Confidentiality of Alcohol and Drug Abuse Patient Records regulations: The Federal rules restrict any use of the information to criminally investigate or prosecute any alcohol or drug abuse patient.[facility] the event this information is protected by the Federal Confidentiality of Alcohol and Drug Abuse Patient Records regulations: The Federal rules restrict any use of the information to criminally investigate or prosecute any alcohol or drug abuse patient.[facility] the event this information is protected by the Federal Confidentiality of Alcohol and Drug Abuse Patient Records regulations: The Federal rules restrict any use of the information to criminally investigate or prosecute any alcohol or drug abuse patient.[facility] Reason for Visit (unrecogniz ed section and content) Reason Comments Cough Congestion, fever, b odyaches, OLVERA x3.5 weeks Reason Comments Ear Pain Left ear and throat pain x 1.5 weeks Reason Comments Cough Cough, fever and OLVERA x 1 day Care Teams (unrecognized sec tion and content) Sales Agent Pest Control Service Relationship Specialty Start Date End Date Pastor Sahni MD PCP - General Family Medicine 11/15/15 Sales Agent Pest Control Service Relationship Specialty Start Date End Date Pastor Sahni MD PCP - General Family Medicine 11/15/15 INFORMATION SOURCE (unrecogn ized section and content) FOR RECORDS PERTAINING TO PATIENTS WHO ARE OR HAVE BEEN ENROLLED IN A CHEMICAL DEPENDENCY/SUBSTANCEABUSE PROGRAM, SOME INFORMATION MAY BE OMITTED. This clinical summary was aggregated from multiple sources. Caution should be exercised in using it in the provision of clinical care. This summary normalizes information from multiple sources, and as a consequence, information in this document may materially change the coding, format and clinical context of patient data. In addition, data may be omitted in some cases. CLINICAL DECISIONS SHOULD BE BASED ON THE PRIMARY CLINICAL RECORDS. [facility] [employer] [facility]. provides no warranty or guarantee of the accuracy or completeness of information in this document.
== END | disposition home or self-care (01) ==
LOC: OPBI 09:10
PROVIDERS: PCP Internal Medicine; Referring Provider Nurse Practitioner Women's Health; Visit Provider Nurse Practitioner Women's Health
DX: Z12.31 Encounter for screening mammogram for malignant neoplasm of breast (principal)
CPT/HCPCS: 77063; 77067

== ENCOUNTER → 2023-11-05 | Outpatient (CLI) | payer OTHER, SELFPAY | END | disposition home or self-care (01) | PROVIDERS: PCP Internal Medicine; Referring Provider Internal Medicine; Visit Provider Internal Medicine | DX: R06.02 Shortness of breath (principal) | CPT/HCPCS: 94060; 94726; 94729 ==

== ENCOUNTER 2024-01-13 17:39 | Emergency (ER) | payer OTHER, SELFPAY ==
[2024-01-13 17:39] VITALS: BP 143/81; PULSE 98; RESP 22; TEMP 36.1; O2SAT 100; BMI 32.0
[2024-01-13 18:00] LABS: Bacteria 0 SEEN /hpf (None Seen); White Blood Cells 0 SEEN /hpf (0-5)
[2024-01-13 18:06] LABS: Color, Urine Yellow (Yellow); Glucose, Dipstick Normal (Normal); Ketone-Dipstick Negative (Negative); Leukocyte Esterase-Dipstick Negative /ul (Negative); Nitrite-Dipstick Negative (Negative); Occult Blood-Urine 50 /ul (Negative); Protein-Dipstick 15 mg/dl (Negative); Urine Bilirubin Dipstick Negative (Negative); Urine Clarity Sl. Cloudy (Clear); Urine Urobilinogen Normal (Normal)
[2024-01-13 18:06] LABS: Absolute Lymphocyte Count 1.54 X10^3/uL (0.83-4.51); Absolute Neutrophil Count 2.7 X10^3/uL (2.0-7.7); Basophil# 0.03 X10^3/uL; Basophil% 0.7 % (0-1); Eosinophil# 0.05 X10^3/uL; Eosinophils% 1.1 % (0-5); Hematocrit 40.1 % (37-47); Hemoglobin 13.6 g/dL (12.0-15.0); Lymphocyte # 1.54 X10^3/ul (0.83-4.51); Lymphocyte % 33.4 % (19-41); Mean Corp Hgb Conc 33.9 g/dL (32-36); Mean Corpuscular Volume 91.3 fL (81-99); Mean Platelet Vol. 9.6 fl (6.2-12.0); Monocyte# 0.33 X10^3/uL; Monocyte% 7.2 % (0-10); NRBC Flagged by Analyzer 0 % (0-5); Neutrophil # 2.65 X10^3/uL (2.7-7.7); Neutrophil % 57.4 % (47-70); Platelet Count 312 K/mm3 (150-450); RBC Distribution Width CV 11.9 % (11.6-14.6); RBC Distribution Width SD 40.2 fl (35.1-43.9); Red Blood Count 4.39 M/mm3 (4.2-5.4); White Blood Count 4.6 K/mm3 (4.4-11.0)
--- NOTE | 2024-01-13 18:07 | EDS_ITS ---
HPI HPI - GI History of Present Illness Chief Complaint: Flank Pain Detail of Chief Complaint: Left flank pain began around 8 AM this morning. Informant: patient Abdominal Pain/Flank Pain Onset: Today and Hours Context: Gradual Onset Timing: Continuous Quality: Sharp and Stabbing Location: Left Flank Current Severity: Moderate Maximum Severity: Moderate Worsened by: Nothing Relieved by: Nothing Nausea/Vomiting/Emesis GI Symptom: Positive for Nausea; Negative for Vomiting Onset: Today Severity: Mild Diarrhea/Melena/Hematochezia GI Symptom: Negative for Diarrhea, Melena or Hematochezia Associated Symptoms Associated Symptoms: Negative for Dysuria, Frequency, Hematuria or Urgency Narrative Narrative: 43-year-old female has medical history of anemia and ocular migraines. Woke up this morning around 8 AM left flank pain its gotten worse. No prior history of kidney stones. No recent dysuria or hematuria. No recent fever. No trauma or injury. Says it started to high up in her left flank and now has radiated a little bit to the left lateral abdomen. Nothing particular makes it better or worse. Associated nausea but no vomiting or diarrhea. No fever. No dysuria. She is currently on her most recent menstrual period that started 2 days ago. 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 Mild nausea. Review of Systems ROS Unobtainable: Denies due to encephalopathy Constitutional Constitutional ED: Denies chills or fever(s) ENT ENT ED: Denies ear pain Cardiovascular Cardiovascular: Denies chest pain Respiratory/Chest Respiratory/Chest: Denies cough or dyspnea Gastrointestinal Gastrointestinal: Reports abdominal pain and nausea; Denies constipation, diarrhea, melena or vomiting Genitourinary Genitourinary ED: Denies dysuria, hematuria or urinary frequency Musculoskeletal Musculoskeletal: Denies arthralgias or back pain Integumentary Denies abscess or Abrasions Neurologic Neurologic: Denies headache(s) Psychiatric Psychiatric: Denies anxiety Endocrine Endocrinology: Denies polydipsia or polyphagia Hematologic/Lymphatic Hematologic/Lymphatic: Denies easy bleeding Allergic/Immunologic Allergic/Immunologic ED: Denies mouth swelling or tongue swelling EXAM Physical Exam Narrative Exam Narrative: Well-appearing 43-year-old female. Vital signs stable afebrile. H EENT exam unremarkable. Lungs clear. Heart regular rhythm rate about 90 no murmur. Chest wall and ribs nontender. Abdomen soft, nontender, nondistended, normal bowel sounds without peritoneal signs. Abdomen is completely nontender. No signs of trauma. Back completely nontender. No CVA tenderness. No ecchymosis or bruising. No rashes. Moving all 4 extremities. Neurovascular intact. Awake and alert. Const Vital Signs: 01/13/24 17:39 Temperature 96.9 F L Temperature Source Temporal Pulse Rate 98 Respiratory Rate 22 H Blood Pressure 143/81 H Blood Pressure Mean 101 Pulse Ox 100 Oxygen Delivery Method Room Air Positive well nourished and well developed; Negative for cachectic, contractures or unkempt General Appearance ED: well developed and NAD; Negative for unkempt, cachectic, contractures or pallor Nutritional Appearance: Negative for cachectic HEENT Reports moist mucous membranes; Denies dry mucous membranes normocephalic and atraumatic; Negative for trauma or tenderness Mouth ED: No dry mucous membranes Mouth: No dry mucous membranes Eyes PERRL and EOMs intact bilaterally Neck no lymphadenopathy, supple and no JVD General: Negative for tenderness Carotids: Negative for other Lymph Lymphatic: Negative for other Resp normal respiratory effort and clear to auscultation bilaterally Effort and Inspection: Negative for respiratory distress Auscultation: Negative for rales, rhonchi or wheezes Cardio regular rate, regular rhythm, S1 normal heart sound, S2 normal heart sound and no murmurs Rate: Negative for bradycardia or tachycardic Rhythm: Negative for abnormal rhythm GI non-tender, non-distended and no masses Inspection: Negative for abdominal distention Auscultation: normoactive bowel sounds Palpation: soft; Negative for tender, guarding, pulsatile mass or rebound tenderness present Back/Spine no CVA tenderness General Back: Negative for CVA tenderness Cervical Spine: Negative for cervical spine tenderness Thoracic Spine / Upper Back: Negative for thoracic spinal tenderness Lumbar Spine / Lower Back: Negative for lumbar spinal tenderness Coccyx: Negative for other Extremity full ROM General Extremety ED: Negative for edema, tenderness or other findings General Extremity: Negative for edema or other findings Neuro CN's II-XII intact bilaterally and moves all extremities Sensorium / Orientation: alert, oriented to person, oriented to place and oriented to time; Negative for orientation impaired, confused, lethargic or stuporous Motor Exam: strength 5/5 throughout Psych mental status grossly normal and thought process normal Appearance: Negative for unkempt Attitude: No agitated Mood & Affect: Negative for depressed, anxious or tearful Skin no wounds General Skin Exam: Negative for jaundice or pallor Lesions: no lesions Rashes: no rashes Trauma: Negative for abrasion Nails: Negative for discolored MDM MDM MDM Narrative Medical decision making narrative: 43-year-old female with left flank pain mild nausea. Possible kidney stone. Versus UTI versus pyelonephritis versus other etiologies. Is not reproducible. CAT scan labs pending. She was offered IV pain medications and nausea medications she deferred she did want some Motrin. Repeat exam patient is doing well at 7 PM. Abdomen is benign. We went over test results this may or may not be secondary to past kidney stone. She has a small 1 to 2 mm stone in her left kidney there is no obvious stone in her ureter. There is a small amount of blood in her urine but no infection may be from a recently passed kidney stone. Otherwise his flank pain from uncertain etiology. She and I discussed that. Motrin Tylenol for pain. Strain her urine. Follow-up as needed. History & Record Review Discussion w/independent historian: Patient Lab Data Attestation: I reviewed the patient's lab results. Lab results narrative: CBC normal. White count of 4 H&H 13 and 40. Platelets 312. Chemistries normal gap 7. Normal BUN and creatinine. Glucose 113. Liver enzymes normal. Serum test negative. UA negative. Occult blood only. No infection. Labs: Laboratory Results - last 24 hr 01/13/24 01/13/24 17:47 17:53 WBC 4.6 RBC 4.39 Hgb 13.6 Hct 40.1 MCV 91.3 MCH 31.0 MCHC 33.9 RDW Std Deviation 40.2 RDW Coeff of Tristan 11.9 Plt Count 312 MPV 9.6 Immature Gran % (Auto) 0.200 Neut % (Auto) 57.4 Lymph % (Auto) 33.4 [place] % (Auto) 7.2 Eos % (Auto) 1.1 Baso % (Auto) 0.7 Absolute Neuts (auto) 2.7 Absolute Lymphs (auto) 1.54 Nucleated RBC % 0 Sodium 138 Potassium 3.7 Chloride 107 Carbon Dioxide 24.0 Anion Gap 7 BUN 10 Creatinine 0.90 Estim Creat Clear Calc 91.07 Est GFR (MDRD) Af Amer 88 Est GFR (MDRD) Non-Af 73 BUN/Creatinine Ratio 11.2 Glucose 113 H Calcium 8.5 Total Bilirubin 0.50 AST 33 ALT 34 Alkaline Phosphatase 52 Total Protein 7.8 Albumin 3.8 Globulin 4.0 Albumin/Globulin Ratio 1.0 Serum , Qual NEGATIVE Urine Color Yellow Urine Clarity Sl. Cloudy Urine pH 6.0 Ur Specific Morrow 1.020 Urine Protein 15 H Urine Glucose (UA) Normal Urine Ketones Negative Urine Occult Blood 50 H Urine Nitrite Negative Urine Bilirubin Negative Urine Urobilinogen Normal Ur Leukocyte Esterase Negative Urine RBC 0-5 SEEN Urine WBC 0 SEEN Ur Squamous Epith Cells 0-5 SEEN Urine Bacteria 0 SEEN Urine Mucus 1+ Radiography Diagnostic Testing: Clinical Impression(s) from Imaging Studies Abdomen/Pelvis CT 01/13/24 18:15 IMPRESSION: 1. Small 1 to 2 mm nonobstructing LEFT renal calcification. No ureteral stones or CT evidence of obstructive uropathy. 2. No evidence of masses bowel obstruction abscess free fluid or free air. No evidence of diverticulitis. No evidence of appendicitis. 3. No evidence cholelithiasis. 4. Hepatomegaly and hepatic steatosis suspected. Electronically Signed: Bunny Jaquez MD at 18:50 EDT , Discharge Plan Triage Chief Complaint: Flank Pain ED Provider: Nazario Martinez Dx/Rx/DC Orders Clinical Impression: Acute left flank pain Instructions: ED Kidney Stone, Passed Prescriptions: No Action buspirone 5 mg tablet 5 mg PO QDAY Qty: 90 1RF Primary Care Provider: Valentine Serrano Referrals: Valentine Serrano MD [Primary Care Provider] - As Needed Activity Restrictions/Additional Instructions: Your labs are normal. Your CAT scan showed a small 1 to 2 mm stone in your left kidney. But no active stone moving from your kidney to your bladder. You may have passed a small stone in your bladder. Your urine had a small amount of blood in it which would go along with a kidney stone. But there is no signs of infection. Strain your urine to look for a stone. You do not need to keep it or anything. Motrin and Tylenol for pain. Follow-up if not improving. Print Language: Mongolian Disposition Disposition: Home, Self Care
[2024-01-13] MEDS: Ibuprofen 600 MG Tablet PO (18:11)
--- NOTE | 2024-01-13 18:15 | CT_ITS ---
INDICATION: left flank pain ?? stone EXAMINATION: CT ABDOMEN AND PELVIS WITHOUT CONTRAST - CT Abdomen And Pelvis W/O Contrast Injection TECHNIQUE: Helically acquired images were obtained of the abdomen and pelvis without oral or IV contrast. A radiation dose optimization technique was used for this scan. IV Contrast dosage and agent: None. Oral contrast: None. RADIATION DOSAGE (If Supplied By Facility): CTDIvol = ( 15.05 ) mGy, DLP = ( 819.97 ) mGycm COMPARISON: No pertinent previous examinations for comparison. FINDINGS: LOWER CHEST: Lung bases are clear. No cardiomegaly or pericardial effusion. LIVER: Liver is large, diffuse fatty infiltration suspected. No focal mass. GALLBLADDER AND BILIARY TREE: No calcified gallstones. No gallbladder distension or wall edema. No intra- or extrahepatic biliary ductal dilation. PANCREAS: No focal cystic or solid mass. SPLEEN: Normal size without focal cystic or solid mass. ADRENAL GLANDS: No nodules. KIDNEYS AND URETERS: Normal renal size and position. There is a small 1 to 2 mm calcification LEFT kidney. No evidence of ureteral stones, no evidence of obstructive uropathy. PERITONEUM: No ascites or free air. No other fluid collection. BOWEL: No evidence of acute appendicitis. No stomach or bowel distension. No focal inflammatory change. LYMPH NODES: No enlarged mesenteric or retroperitoneal lymph nodes. VESSELS: Aorta is non-dilated. URINARY BLADDER: Unremarkable. REPRODUCTIVE ORGANS: No pelvic masses. ABDOMINAL WALL: There is a fat containing periumbilical hernia without bowel involvement. BONES: No lytic or blastic abnormality. CT/Abdomen/Pelvis without Cont IMPRESSION: 1. Small 1 to 2 mm nonobstructing LEFT renal calcification. No ureteral stones or CT evidence of obstructive uropathy. 2. No evidence of masses bowel obstruction abscess free fluid or free air. No evidence of diverticulitis. No evidence of appendicitis. 3. No evidence cholelithiasis. 4. Hepatomegaly and hepatic steatosis suspected. Electronically Signed: Bunny Jaquez MD at 18:50 EDT ,
[2024-01-13 18:21] LABS: AST(SGOT) 33 U/L (15-37); Alanine Aminotransfer ALT/SGPT 34 U/L (13-56); Albumin, Serum 3.8 g/dL (3.2-5.0); Alkaline Phosphatase 52 U/L (45-117); Anion Gap 7 (5-15); BUN 10 mg/dL (7-18); BUN/Creat Ratio 11.2 RATIO (10-20); Calcium,Total 8.5 mg/dL (8.5-10.1); Chloride 107 mmol/L (98-107); EST Glomerular Filtration Rate 73 mL/min (>60); Est Glom Filt Rate - Afr Amer 88 mL/min (>60); Estimated Creatinine Clearance 91.07 ml/min; Glucose 113 mg/dL (74-106); Potassium 3.7 mmol/L (3.5-5.1); Protein, Total 7.8 g/dL (6.4-8.2); Sodium Level 138 mmol/L (136-145)
[2024-01-13 18:22] LABS: Mucous, Urine 1+ /hpf (<or=2+); Red Blood Cells-Urine 0-5 SEEN /hpf (0-5); Squamous Epithelial Cells - UA 0-5 SEEN /hpf (5-10)
[2024-01-13 18:29] LABS: Internal QC Validated? YES +Cl - CLEAR BKGD; Pregnancy, Serum, hCG Quali. NEGATIVE Negative; Record Kit Lot#, Serum Preg. 772476
[2024-01-13 19:12] VITALS: BP 109/68; PULSE 66; RESP 18; TEMP 36.6; O2SAT 99
== END 2024-01-13 19:13 | disposition home or self-care (01) ==
PROVIDERS: Emergency Provider Emergency Medicine; PCP Internal Medicine; Visit Provider Emergency Medicine
DX: R10.9 Unspecified abdominal pain (principal); N20.0 Calculus of kidney; R11.0 Nausea; Z79.899 Other long term (current) drug therapy
CPT/HCPCS: 74176; 80053; 81001; 84703; 85025; 99284; J7030; A4216

== ENCOUNTER → 2024-07-27 | Outpatient (CLI) | payer OTHER, SELFPAY ==
--- NOTE | 2024-07-27 13:01 | US_ITS ---
INDICATION: Abnormal uterine bleeding EXAMINATION: Ultrasound US Transvaginal Non-OB TECHNIQUE: Transvaginal (for optimal evaluation of the adnexa) pelvic ultrasound was performed. Grayscale, spectral waveform, and color flow Doppler evaluation of the adnexa. COMPARISON: FINDINGS: UTERUS: Anteverted. The uterus measures 9.0 x 5.2 x 3.9 cm. 1 x 0.8 hypoechoic nodule possibly a small exophytic fibroid. There is fluid within the cervical canal and heterogeneous echogenicity may be related to blood products. Nabothian cysts. The endometrial stripe measures 6 mm in AP diameter which is within normal limits. RIGHT OVARY: 3.3 x 2.2 x 2.1 cm. Up to 1.5 cm cystic nodules. There is normal arterial inflow and venous outflow present in the right ovary. LEFT OVARY: 2.5 x 1.5 x 1.5 cm. Non-enlarged, normal echogenicity. There is normal arterial inflow and venous outflow present in the left ovary. FREE FLUID: None. US/Transvaginal Non- IMPRESSION: Nabothian cysts. Possible blood product within the cervical canal. Right ovarian cystic nodules. Electronically Signed: Thanh Murcia DO at 16:19 EST Reading Location ID and State: [facility] / [place] Tel [phone], Service support ,
== END | disposition home or self-care (01) ==
LOC: US 12:59
PROVIDERS: PCP Internal Medicine; Referring Provider Nurse Practitioner Women's Health; Visit Provider Nurse Practitioner Women's Health
DX: N93.9 Abnormal uterine and vaginal bleeding, unspecified (principal)

== ENCOUNTER → 2024-08-16 | Outpatient (CLI) | payer OTHER, SELFPAY ==
--- NOTE | 2024-08-16 11:25 | EMB_PTH ---
PATIENT: JACQUI PINEDA LOC: [facility] U#:[id number] AGE/SX: 44/F ROOM: RE08/16/[address]: MAMTA Leigh : 1980 BED: DIS: 08/16/2024 SPEC #: [id number] RECD: 08/16/24 11:25 STATUS: BERTHA PATRICIAJackie #: [id number] LINA: 08/16/24 11:[address]: Siria Rasheed NP DEPT: SURGICAL PATHOLOGY RECD BY: Moon Chew ENTERED: 08/17/24 07:41 SP TYPE: ENDOM BX/C ELIANE DR: Dr. Valentine Serrano MD Tissues: Endometrium, NOS Procedures: Surgery Specimen Level IV HEADER OPERATION: Endometrial biopsy PRE-OP DIAGNOSIS: Abnormal uterine bleeding TISSUE SUBMITTED: Endometrial lining MICROSCOPIC DIAGNOSIS Endometrial biopsy: Proliferative endometrium. Fragments of benign endocervical mucosa with focal squamous metaplasia. SJ.mr 08/18/2024 MICROSCOPIC DESCRIPTION Slides are reviewed. GROSS DESCRIPTION Received is one container labeled with the patient's name and not further designated. The specimen consists of multiple irregular fragments of hemorrhagic mucoid tissue that in aggregate measure 3 x 2.5 x 0.3 cm. The specimen is totally submitted in one cassette. AMISHA. 08/17/2024 TC:5 CPT:61441
== END | disposition home or self-care (01) ==
LOC: LABSPEC 13:49
PROVIDERS: PCP Internal Medicine; Referring Provider Nurse Practitioner Women's Health; Visit Provider Nurse Practitioner Women's Health
DX: N85.8 Other specified noninflammatory disorders of uterus (principal); N93.9 Abnormal uterine and vaginal bleeding, unspecified
CPT/HCPCS: 88305

== ENCOUNTER → 2024-10-10 | Outpatient (CLI) | payer OTHER, SELFPAY ==
--- NOTE | 2024-10-10 15:15 | BI_ITS ---
EXAM: SCRN MAMM (CAD)W/DONALD BILAT DATE: 10/10/2024 CLINICAL HISTORY: F, Age 44 y/o , SCREENING FOR BREAST CACNER No family history. BREAST CANCER RISK ASSESSMENT: Not assessed. TECHNIQUE: Bilateral screening digital breast tomosynthesis with 2D and 3D images. Computer aided detection. COMPARISON: Prior exam(s) dated September 14, 2023.. FINDINGS: TISSUE DENSITY: The breast tissue is heterogenously dense, which may obscure small masses. Bilateral Breast Mammographic Findings: No significant masses, calcifications or other abnormalities are identified. No suspicious masses, areas of developing architectural distortion, or suspicious calcifications. There has been no significant interval change. Stable benign-appearing axillary lymph nodes. BI/SCRN MAMM (CAD)W/DONALD BILAT IMPRESSION: Right Breast: BIRADS 2 BENIGN FINDING. Left Breast: BIRADS 2 BENIGN FINDING. OVERALL FINAL ASSESSMENT: BIRADS 2 BENIGN FINDING RECOMMENDATION: Routine annual follow-up in 1 Year A letter with findings and recommendations will be mailed to the patient. Reading Location: [facility]
== END | disposition home or self-care (01) ==
LOC: OPBI 15:04
PROVIDERS: PCP Internal Medicine; Referring Provider Advanced Practice Midwife; Visit Provider Advanced Practice Midwife
DX: Z12.31 Encounter for screening mammogram for malignant neoplasm of breast (principal)
CPT/HCPCS: 77063; 77067

== ENCOUNTER → 2024-10-11 | Outpatient (CLI) | payer OTHER, SELFPAY ==
--- NOTE | 2024-10-11 14:32 | US_ITS ---
PROCEDURE: PELVIC W/ TRANSVAGINAL REASON FOR EXAM: RIGHT OVARIAN CYST Follow-up. TECHNIQUE: Transabdominal and transvaginal pelvic ultrasound COMPARISON: Prior study dated September 26, 2024. FINDINGS: Measurements: Uterus: 9 cm x 6.2 cm x 4.1 cm with a volume of 94.9 mL Endometrial Thickness: 11 mm hyperechoic.. Nabothian cyst. Right Ovary: 2.8 cm x 2.2 cm x 1.9 cm with a volume of 7.78 mL. Dominant follicle is seen. Left Ovary: 3.9 cm x 3.6 cm x 3 cm with a volume of 3.03 mL. TRANSABDOMINAL: Uterus: Unremarkable Endometrium: Unremarkable Right ovary: Dominant follicle is seen. Left ovary: Persistent 3 cm x 2.6 cm by 2.6 cm. Other: Transvaginal sonography was performed to better visualize the endometrium. TRANSVAGINAL: Uterus: Unremarkable Endometrium: Unremarkable. Right ovary: Dominant follicle is seen. Left ovary: There is a 3 cm x 2.6 cm x 2.6 cm left ovarian cyst. Other adnexal findings: None. Cul-de-sac: No free intraperitoneal fluid identified. Tenderness: US/Pelvic w/ Transvaginal IMPRESSION: Small residual right ovarian follicle. 3 cm x 2.6 cm 2.6 cm left ovarian cyst. Reading Location: [place] [id number]
== END | disposition home or self-care (01) ==
LOC: OPUS 14:31
PROVIDERS: PCP Internal Medicine; Referring Provider Nurse Practitioner Women's Health; Visit Provider Nurse Practitioner Women's Health
DX: N83.201 Unspecified ovarian cyst, right side (principal); N92.0 Excessive and frequent menstruation with regular cycle
CPT/HCPCS: 76830; 76856